=== PATIENT | male | born 1985 | race Caucasian/White ===

== ENCOUNTER 2018-05-31 17:40 | Emergency (ER) | payer MEDICAID ==
[~2018-05-31] VITALS: Ht 162.6 cm; Wt 66.0 kg
[~2018-05-31 17:40] MED LIST: OXYC-302 PO
[2018-05-31 17:52] VITALS: BP 111/65
[2018-05-31] MEDS ORDERED: DIPH,PERTUSS(ACELL),TET VAC/PF 0.5 ML IM-VACC ONE ×2 (18:00→18:49)
[2018-05-31] MEDS ORDERED: LIDOCAINE-MPF 1%, 5ML INFIL ONE (18:00)
== END 2018-05-31 19:10 | disposition home or self-care (01) ==
LOC: ED 19:04
DX: S61.411A Laceration without foreign body of right hand, initial encounter (principal); X58.XXXA Exposure to other specified factors, initial encounter; Y93.89 Activity, other specified; Y92.009 Unspecified place in unspecified non-institutional (private) residence as the place of occurrence of the external cause; Y99.8 Other external cause status
CPT/HCPCS: 90471; 90715

== ENCOUNTER 2018-08-26 11:16 | Emergency (ER) | payer MEDICAID ==
[~2018-08-26] VITALS: Ht 167.6 cm; Wt 66.4 kg
[2018-08-26 11:24] VITALS: BP 115/58
[2018-08-26] MEDS ORDERED: LIDOCAINE 1%-EPI 1:100K, 20ML ONE (11:50)
[2018-08-26] MEDS ORDERED: LIDOCAINE 1%-EPI 1:100K, 20ML SQ ONE (12:00)
== END 2018-08-26 13:12 | disposition home or self-care (01) ==
LOC: ED 12:50
DX: L02.31 Cutaneous abscess of buttock (principal); F17.200 Nicotine dependence, unspecified, uncomplicated
CPT/HCPCS: 10060; 99283; J3490

== ENCOUNTER 2020-11-23 09:29 | Emergency (ER) | payer SELFPAY ==
[~2020-11-23] VITALS: Ht 167.6 cm; Wt 68.1 kg
[~2020-11-23 09:29] MED LIST changes: -OXYC-302 PO; +OXYC1TAB14 PO
[2020-11-23 09:33] VITALS: BP 99/59
[2020-11-23 11:18] LABS: RAPID INFLUENZA A Negative (Negative); RAPID INFLUENZA B Negative (Negative)
--- NOTE | 2020-11-25 11:58 | NUR ---
PATIENT CALLED FOR COVID RESULTS, INFORMED PATIENT THAT COVID TEST NEGATIVE.
== END 2020-11-23 12:00 | disposition home or self-care (01) ==
LOC: ED 10:33
DX: B34.9 Viral infection, unspecified (principal); Z20.822 Contact with and (suspected) exposure to COVID-19; H11.32 Conjunctival hemorrhage, left eye; R05 Cough; F17.200 Nicotine dependence, unspecified, uncomplicated; Z88.6 Allergy status to analgesic agent
CPT/HCPCS: 71045; 87400; 99284; U0003; U0005